=== PATIENT | male | born 1985 | race Caucasian/White ===

== ENCOUNTER 2017-02-20 21:56 | Emergency (ER) | payer MEDICARE, MEDICAID ==
[2017-02-20] MEDS ORDERED: Ketorolac Tromethamine 60 MG/2 ML VIAL ONE (22:35)
[2017-02-20] MEDS ORDERED: Ondansetron ODT 4 MG TAB ONE (22:35)
== END 2017-02-20 23:01 | disposition home or self-care (01) ==
LOC: MADERS 21:56
DX: S06.0X1A Concussion with loss of consciousness of 30 minutes or less, initial encounter (principal); W06.XXXA Fall from bed, initial encounter
CPT/HCPCS: 96372; J1885; Q0162

== ENCOUNTER 2020-06-19 17:43 | Emergency (ER) | payer MEDICARE, MEDICAID ==
[2020-06-19] MEDS ORDERED: Lidocaine 2% 20 ml MDV ONE (18:43)
[2020-06-19] MEDS ORDERED: Boostrix 0.5 ML (Tdap) VIAL ONE (18:43)
[2020-06-19] MEDS ORDERED: Bacitracin 1 PK ONE (19:48)
== END 2020-06-19 20:02 | disposition home or self-care (01) ==
LOC: MADERS 17:43
DX: S61.412A Laceration without foreign body of left hand, initial encounter (principal); K21.9 Gastro-esophageal reflux disease without esophagitis; E29.1 Testicular hypofunction; Z87.442 Personal history of urinary calculi; W26.0XXA Contact with knife, initial encounter
CPT/HCPCS: 12002; 90471; 90715

== ENCOUNTER 2021-01-03 15:44 | Outpatient (CLI) | payer MEDICARE, MEDICAID | END 2021-01-03 15:45 | disposition home or self-care (01) | LOC: MADRAD 15:44 | PROVIDERS: ATTEND Family Medicine | DX: U07.1 COVID-19 (principal) | CPT/HCPCS: 71046 ==